=== PATIENT | male | born 1970 | race Caucasian/White ===

== ENCOUNTER 2016-07-09 13:09 | Outpatient (CLI) ==
[2015-07-15 19:05] VITALS: BMI 50.8
--- NOTE | 2016-07-09 13:44 | DI ---
EXAM: Views of the left ankle HISTORY: Pain TECHNIQUE: AP lateral, oblique views of the left ankle were obtained. FINDINGS: No acute fractures are seen. There is anatomic alignment. The joint spaces are normal. IMPRESSION: No acute fracture dislocation seen within the left ankle.
--- NOTE | 2016-07-09 13:52 | DI ---
EXAM: Radiographs, left foot HISTORY: Lateral left mid foot pain. COMPARISON: None available. TECHNIQUE: Three-view. FINDINGS: Bone mineralization is normal. There is no fracture or dislocation. Joint spaces are ma intained although there is mild spurring along the joints of the hindfoot and midfoot. A moderate s ized calcaneal spur is present at the plantar aponeurosis with a small retrocalcaneal spur at the Ac hilles tendon insertion. A 0.2 cm radiopaque object projects over the plantar skin surface at the l evel of the distal first metatarsal. IMPRESSION: 1. No fracture or dislocation. 2. 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 3. Calcaneal spurs. 4. Linear radiopaque object appears to be on the plantar skin at the level of the distal first meta tarsal.
== END 2016-07-09 13:10 | disposition home or self-care (01) ==
LOC: RAD 13:09
PROVIDERS: ATTEND Physician Assistant
DX: M25.579 Pain in unspecified ankle and joints of unspecified foot (principal)

== ENCOUNTER 2016-07-22 10:56 | Outpatient (CLI) ==
[2015-07-15 19:05] VITALS: BMI 50.8
[2016-07-22 11:51] LABS: ALBUMIN 3.7 g/dL (3.4-5.0); ALBUMIN/GLOBULIN RATIO 1.12; ANION GAP 12.4; BILIRUBIN,TOTAL 0.45 mg/dL (0.00-1.20); BUN/CREATININE RATIO 16.49; CALCIUM 9.2 mg/dL (8.2-10.2); CHOL/HDL RATIO 3.4 (4.5-6.4); CREATININE 0.97 mg/dL (0.60-1.10); POTASSIUM 4.4 mmol/L (3.5-5.1)
--- NOTE | 2016-07-22 12:10 | CT ---
EXAM: CT Abdomen without contrast. CT Pelvis without contrast. HISTORY: Right ureteral stone. Right flank pain. COMPARISON: None available. TECHNIQUE: Multiple axial images of the abdomen and pelvis were obtained without intravenous contra st. Images were reformatted in the coronal plane. FINDINGS: Please note that evaluation of the abdominal and pelvic structures is limited due to lack of intravenous contrast. Left lower lobe calcified granuloma noted. There are old left-sided rib fractures. Gallbladder is absent. The liver is enlarged and low density. The pancreas, spleen, and adrenal gl ands demonstrate normal contour. No calcified renal stones or hydronephrosis detected. No ureteral or bladder calculi are seen. Tubular extension of the anterior superior urinary bladder towards th e umbilicus noted. This appears to terminate below the level of the umbilicus. Otherwise, the blad john is unremarkable. The bowel is normal in course and caliber without evidence for obstruction or inflammatory process. Probable tiny normal appendix. A few diverticula are present in the colon. No free fluid or free air identified. Phleboliths are seen in the pelvis. IMPRESSION: 1. No evidence for nephrolithiasis or obstructive uropathy. 2. 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 3. Hepatomegaly with fatty infiltration.
[2016-07-23 06:14] LABS: TESTOSTERONE 219 ng/dL (348-1197)
[2016-07-24 07:24] LABS: FREE TESTOSTERONE 4.9 pg/mL (6.8-21.5)
== END 2016-07-22 10:57 | disposition home or self-care (01) ==
LOC: RAD 10:56
PROVIDERS: ATTEND Urology
DX: E11.65 Type 2 diabetes mellitus with hyperglycemia (principal); R79.89 Other specified abnormal findings of blood chemistry; N23 Unspecified renal colic; N20.1 Calculus of ureter
CPT/HCPCS: 36415; 74176; 80053; 80061; 83036; 84402; 84403; 92567

== ENCOUNTER 2016-09-12 19:50 | Emergency (ER) | payer OTHER ==
[2016-09-12 19:50] VITALS: BMI 50.8
[2016-09-12 20:01] VITALS: BP 171/107; TEMP 98.7
[2016-09-12 20:26] LABS: BASOPHILS # (AUTO) 0.1 K/uL (0-0.2); BASOPHILS % (AUTO) 0.4 % (0.0-3.0); EOSINOPHILS # (AUTO) 0.3 K/ul (0.0-0.7); EOSINOPHILS % (AUTO) 1.5 % (0.0-7.0); HEMATOCRIT 44.4 % (42.0-52.0); HEMOGLOBIN 15.4 g/dl (14.0-18.0); IMMATURE GRANULOCYTE % (AUTO) 0.6 % (0.0-5.0); LYMPHOCYTES # (AUTO) 1.6 K/uL (0.60-3.4); LYMPHOCYTES % (AUTO) 9.2 (10.0-50.0); MEAN CORPUSCULAR HEMOGLOBIN 28.2 pg (27.0-31.0); MEAN CORPUSCULAR HGB CONC 34.7 (31.8-35.4); MEAN CORPUSCULAR VOLUME 81.2 fl (80.0-94.0); MONOCYTES # (AUTO) 1.2 K/uL (0.4-2.0); MONOCYTES % (AUTO) 6.9 (0-10); NEUTROPHILS % (AUTO) 81.4; PLATELET COUNT 312 10^3/uL (140-440); RED BLOOD COUNT 5.47 10^6/ul (4.70-6.10); WHITE BLOOD COUNT 17.18 K/ul (4.2-10.2)
[2016-09-12 20:33] LABS: BILIRUBIN,URINE Negative (NEGATIVE); KETONES,URINE Negative (NEGATIVE); LEUKOCYTE ESTERASE ,URINE Negative (NEGATIVE); NITRITE,URINE Negative (NEGATIVE); PROTEIN,URINE Trace (NEGATIVE); URINE, BLOOD Negative (NEGATIVE)
[2016-09-12 20:36] LABS: ADD URINE MICROSCOPIC YES
[2016-09-12] MEDS: SODIUM CHLORIDE 1,000 ML IV STA (20:37)
[2016-09-12] MEDS: PROTONIX IV IVP STA (20:37)
[2016-09-12 20:59] LABS: ERYTHROCYTE SEDIMENTATION RATE 23 mm/hr (0-15); ESR INTERNAL QC INTERNAL QC VALID
[2016-09-12 21:02] LABS: ALANINE AMINOTRANSFERASE 28 U/L (12-78); ALBUMIN 3.5 g/dL (3.4-5.0); ALBUMIN/GLOBULIN RATIO 0.92; ALKALINE PHOSPHATASE 124 U/L (50-136); AMYLASE 60 U/L (25-115); ANION GAP 14.4; ASPARTATE AMINO TRANSFERASE 18 U/L (15-37); BILIRUBIN,TOTAL 0.56 mg/dL (0.00-1.20); BLOOD UREA NITROGEN 13 mg/dL (7-18); BUN/CREATININE RATIO 15.85; CALCIUM 9.1 mg/dL (8.2-10.2); CARBON DIOXIDE 27 mmol/L (21-32); CHLORIDE 99 mmol/L (98-107); CREATINE KINASE 264 U/L; CREATININE 0.82 mg/dL (0.60-1.10); GLUCOSE 146 mg/dL (70-100); LIPASE 162 U/L (8-78); POTASSIUM 4.4 mmol/L (3.5-5.1); SODIUM 136 mmol/L (136-145); TOTAL PROTEIN 7.3 g/dL (6.4-8.2)
[2016-09-12 21:04] LABS: CREATINE KINASE MB 4.3 ng/ml (0.0-3.6)
[2016-09-12] MEDS: DILAUDID 1 MG/ML SYRINGE IVP STA (21:34)
[2016-09-12] MEDS: ZOFRAN 4 MG/2 ML IVP STA (21:36)
--- NOTE | 2016-09-12 22:02 | CT ---
EXAM: CT chest without contrast HISTORY: Chest wall pain TECHNIQUE: Multi-slice transaxial helical. Coronal and sagital reformations were performed. COMPARISON: CT abdomen from same day. 08/13/2015. FINDINGS: The heart is on the upper limits of normal in size. A small amount of superior pericardial recess f luid is seen. There is no evidence of mediastinal adenopathy. Visualized thyroid appears unremarkable. There is no axillary adenopathy. Please see same day CT a bdominal report for description of abdominal findings. Healing left-sided sixth and seventh rib frac tures are present. No evidence of acute appearing rib fractures are seen. There is bridging anteri or osteophytosis of the thoracic spine. The previous left-sided pleural effusion is significantly improved with a trace amount of left-sided pleural effusion remaining. There is dependent atelectasis/subsegmental atelectasis in the left genoveva ng base. Minimal pleural thickening adjacent to the left-sided rib fractures is present. Dependent the right lung base atelectasis is present. Bilateral small calcified granulomas are present. IMPRESSION: 1. Healing left-sided sixth and seventh rib fractures with adjacent minimal pleural thickening. No a cute appearing rib fractures. 2. Improved left-sided pleural effusion with trace remaining. 3. Bibasilar dependent/subsegmental atelectasis. 4. Other incidental and age-related changes as above.
--- NOTE | 2016-09-12 22:07 | CT ---
EXAM: CT scan abdomen pelvis with without contrast HISTORY: Epigastric pain COMPARISON: CT scan abdomen pelvis 07/22/2016 FINDINGS: Contiguous axial images obtained from lung bases to the symphysis pubis both before after uneventful administration of intravenous contrast utilizing 5-mm collimation. Sagittal and coronal reconstructions were imaged and reviewed.. There is a small hiatal hernia. There has been prior ch olecystectomy. There is fatty infiltration noted throughout the liver.. Pancreatic stranding is se en relation to the pancreatic head and uncinate process compatible with pancreatitis. The kidneys ex crete contrast in a normal fashion bilaterally. The abdominal aorta is normal in course and caliber . No evidence of free fluid.. There is likely a urethral diverticulum. Bone windows reveals no evide nce of lytic or blastic lesions . Degenerative changes are seen within the lower thoracic and lumba r spine. IMPRESSION: Fatty infiltration is of throughout the liver. Prior cholecystectomy. There is mild pancreatitis involving pancreatic head and uncinate process. Prominent small bowel which may be related to ileus.
--- NOTE | 2016-09-12 22:24 | ED.PDOC ---
General ED Provider: Dr. JACE GAONA-ER Chief Complaint: Abdominal Pain Stated Complaint: im hurting-- Time Seen by Physician: 19:55 Information Source: Patient Exam Limitations: No limitations Primary Care Provider: JAY OSBORN Nursing and Triage Documentation Reviewed and Agree: Yes GI Complaint Exam - Abdominal Pain Complaint/Exam Onset: Gradual Duration: several days Symptoms Are: Still present Timing: Constant Initial Severity: Severe Current Severity: Moderate Location of Pain: LUQ Character: Reports: Dull, Aching Alleviating: Reports: None Associated Signs and Symptoms: Reports: Decreased appetite. Denies: Diaphoresis , Fever, Cough, Chest pain, Dizziness, Back pain, Constipation, Blood in stool, Dysuria, Urinary frequency, Decreased urine output, Discharge, Nausea, Vomiting , Diarrhea, Decreased activity Surgical Obstruction Risk Factors: Reports: Colicky abdominal pain, Prior abdominal surgery Related Surgical History: Reports: Cholecystectomy Abdominal Findings: Present: None Differential Diagnoses: Constipation, Pancreatitis Quality Indicator For Non-Traumatic Chest Pain/Syncope: EKG Performed Review of Systems - Review Of Systems Constitutional: Reports: No symptoms Eyes: Reports: No symptoms Ears, Nose, Mouth, Throat: Reports: No symptoms Respiratory: Reports: No symptoms Cardiac: Reports: No symptoms GI: Reports: Abdominal pain, Nausea : Reports: No symptoms Musculoskeletal: Reports: No symptoms Skin: Reports: No symptoms Neurological: Reports: No symptoms Endocrine: Reports: No symptoms Hematologic/Lymphatic: Reports: No symptoms All Other Systems: Reviewed and Negative Past Medical History - Past Medical History Endocrine: Reports: DM 2 Cardiovascular: Reports: Hypertension Respiratory: Reports: Pneumonia Hematological: Reports: None Gastrointestinal: Reports: None Genitourinary: Reports: None Neuro/Psych: Reports: None Musculoskeletal: Reports: Back Pain Cancer: Reports: None - Surgical History General Surgical History: Reports: Unknown - Family History Family History: Reports: Unknown - Social History Smoking Status: Never smoker Hx Substance Use: No Alcohol Screening: None Lives: With family Physical Exam - Physical Exam Appearance: Well-appearing, No pain distress, Well-nourished Pain Distress: Mild Eyes: KERI, EOMI, Conjunctiva clear ENT: Ears normal, Nose normal, Oropharynx normal Neck: Supple Respiratory: Airway patent, Breath sounds clear, Breath sounds equal, Respirations nonlabored Cardiovascular: RRR, Pulses normal, No rub, No murmur GI/: Soft, Nontender, No masses, Bowel sounds normal, No Organomegaly Musculoskeletal: Normal strength, ROM intact, No edema, No calf tenderness Skin: Warm, Dry, Normal color Neurological: Sensation intact, Motor intact, Reflexes intact, Cranial nerves intact, Alert, Oriented Psychiatric: Affect appropriate, Mood appropriate Interpretation - Radiology Interpretation Radiology Interpretation By: Radiologist Radiology Results: Positive Exam Interpreted: CT Scan Radiology Interpretation By: ED Physician Re-Evaluation - Re-Evaluation Time of Re-Evaluation: 22:23 Status: Improved Vital Signs Stable: Yes Pain Level: 1 Appearance: NAD Lungs: Clear Skin: Warm and Dry Neuro: Alert and Oriented X3 CV: RRR Critical Care Note - Critical Care Note Total Time (mins): 0 Course - Course Hematology/Chemistry: 09/12/16 20:20 09/12/16 20:20 Orders, Labs, Meds: Lab Review 09/12/16 09/12/16 20:20 20:29 WBC 17.18 H RBC 5.47 Hgb 15.4 Hct 44.4 MCV 81.2 MCH 28.2 MCHC 34.7 RDW Coeff of Tru 12.9 Plt Count 312 Immature Gran % (Auto) 0.6 Neut % (Auto) 81.4 Lymph % (Auto) 9.2 L [place] % (Auto) 6.9 Eos % (Auto) 1.5 Baso % (Auto) 0.4 Immature Gran # (Auto) 0.1 Neut # 14.0 H Lymph # 1.6 [place] # 1.2 Eos # 0.3 Baso # 0.1 ESR 23 H D-Dimer 0.70 Sodium 136 Potassium 4.4 Chloride 99 Carbon Dioxide 27 Anion Gap 14.4 BUN 13 Creatinine 0.82 Estimated GFR (MDRD) 100.00 BUN/Creatinine Ratio 15.85 Glucose 146 H Calcium 9.1 Total Bilirubin 0.56 AST 18 ALT 28 Alkaline Phosphatase 124 Total Creatine Kinase 264 CK-MB (CK-2) 4.3 H CK-MB (CK-2) % 1.37313 Troponin I < 0.0100 Total Protein 7.3 Albumin 3.5 Globulin 3.8 Albumin/Globulin Ratio 0.92 Amylase 60 Lipase 162 H Urine Color Yellow Urine Clarity Clear Urine pH 8.0 Ur Specific [place] 1.020 Urine Protein Trace Urine Glucose (UA) Trace Urine Ketones Negative Urine Blood Negative Urine Nitrite Negative Urine Bilirubin Negative Urine Urobilinogen 1.0 Ur Leukocyte Esterase Negative Ur Squamous Epith Cells 2-5 Amorphous Sediment 1+ Orders Category Date Time Status EKG-(ED ONLY) Stat CARDIO 09/12/16 20:08 Completed NPO REMINDER: IMAGING ONCE CARE 09/12/16 20:10 Completed IV [ED IV/MEDIPORT/POWERPORT] .ONCE EMERGENCY 09/12/16 20:09 Active AMYLASE Stat LAB 09/12/16 20:20 Completed CBC W/ AUTO DIFF Stat LAB 09/12/16 20:20 Completed COMPREHENSIVE METABOLIC PANEL Stat LAB 09/12/16 20:20 Completed CREATINE KINASE Stat LAB 09/12/16 20:20 Completed D-DIMER Stat LAB 09/12/16 20:20 Completed ESR Stat LAB 09/12/16 20:20 Completed LIPASE Stat LAB 09/12/16 20:20 Completed TROPONIN I Stat LAB 09/12/16 20:20 Completed URINALYSIS C & S IF INDICATED Stat LAB 09/12/16 20:29 Completed 0.9 % Sodium Chloride [Saline Flush] MEDS 09/12/16 20:09 Ordered 1 syr IVF PRN PRN Hydromorphone HCl [Dilaudid 1 mg/ml Syringe] MEDS 09/12/16 21:10 Discontinued 1 mg IVP ONCE STA Ondansetron HCl/Pf [Zofran 4 mg/2 ml] MEDS 09/12/16 21:10 Discontinued 4 mg IVP ONCE STA Pantoprazole Sodium [Protonix IV] MEDS 09/12/16 20:09 Discontinued 40 mg IVP ONCE STA Sodium Chloride 0.9% [Sodium Chloride] 1,000 ml MEDS 09/12/16 20:09 Active IV 100 mls/hr CT ABDOMEN/PELVIS W/WO CONTRAS Stat RADS 09/12/16 20:[address] CHEST W/O CONTRAST Stat RADS 09/12/16 20:10 Completed Medications Generic Name Dose Route Start Last Admin Trade Name Freq PRN Reason Stop Dose Admin Sodium Chloride 1,000 mls @ 100 mls/hr 09/12/16 20:09 09/12/16 20:37 Sodium Chloride IV 09/13/16 06:08 100 mls/hr .Q10H STA Administration Sodium Chloride 1 syr 09/12/16 20:09 Saline Flush IVF PRN PRN To flush IV Discontinued Medications Generic Name Dose Route Start Last Admin Trade Name Freq PRN Reason Stop Dose Admin Hydromorphone HCl 1 mg 09/12/16 21:10 09/12/16 21:34 Dilaudid 1 Mg/Ml Syringe IVP 09/12/16 21:11 1 mg ONCE STA Administration Ondansetron HCl 4 mg 09/12/16 21:10 09/12/16 21:36 Zofran 4 Mg/2 Ml IVP 09/12/16 21:11 4 mg ONCE STA Administration Pantoprazole Sodium 40 mg 09/12/16 20:09 09/12/16 20:37 Protonix Iv IVP 09/12/16 20:10 40 mg ONCE STA Administration i wanted to admit or transfer this patient but he declines--his was present and notes this) Vital Signs: Temp Pulse Resp BP Pulse Ox 09/12/16 19:51 98.7 F 112 H 20 171/107 H 95 Departure - Departure Time of Disposition: 22:23 Disposition: HOME SELF-CARE Discharge Problem: Pancreatitis Qualifiers: Chronicity: acute Pancreatitis type: unspecified pancreatitis type Acute pancreatitis complication: unspecified Qualifier Code: (K85.90) Acute pancreatitis without necrosis or infection, unspecified Instructions: Pancreatitis (ED) Condition: Good Pt referred to PMD for follow-up: Yes Additional Instructions: keep hydrated---percocet 10mg q 4hrs prn #15---no fatty foods---slowly advance diet--f/u with dr osborn thursday--hold metformin for 48hrs Allergies/Adverse Reactions: Allergies No Known Allergies Allergy (Verified 09/12/16 20:01) Home Medications: Ambulatory Orders Atorvastatin Calcium [Lipitor] 20 mg PO BEDTIME 09/02/13 Gabapentin [Neurontin] 300 mg PO DAILY 09/02/13 Insulin Glargine,Hum.rec.anlog [Lantus] 100 unit SUBCUT BEDTIME 09/02/13 Insulin Glulisine [Apidra] 25 units SQ QDAC PRN 09/02/13 Lamotrigine [Lamictal Xr] 300 mg PO DAILY 09/02/13 Losartan Potassium 100 mg PO BEDTIME 09/02/13 Omeprazole [Prilosec] 40 mg PO BEDTIME 09/02/13 Sertraline HCl 100 mg PO BEDTIME 09/02/13 Sitagliptin Phos/Metformin HCl [Janumet 50-1,000 mg Tablet] 1 tab PO BID Hydrocodone Bit/Acetaminophen [[place] 5-325] 1 tab PO Q6HR PRN 07/15/15 Levomilnacipran Hydrochloride [Fetzima] 40 mg PO DAILY 05/19/16 Testosterone [Androgel] 1.25 gm TD DAILY 05/19/16 Budesonide/Formoterol Fumarate [Symbicort 160-4.5 Mcg Inhaler] 2 puff IH BID PRN 09/12/16 Disposition Discussed With: Patient, Family
== END 2016-09-12 22:43 | disposition home or self-care (01) ==
LOC: ED 19:50
DX: K85.90 Acute pancreatitis without necrosis or infection, unspecified (principal); E11.9 Type 2 diabetes mellitus without complications; I10 Essential (primary) hypertension; Z79.899 Other long term (current) drug therapy
CPT/HCPCS: 36415; 80053; 81001; 82150; 82550; 82553; 83690; 84484; 85025; 85379; 85651; 93005; 93010; 96361; 96374; 96375; 99283

== ENCOUNTER 2016-11-03 11:02 | Outpatient (CLI) ==
[2016-11-03 11:20] LABS: BASOPHILS % (AUTO) 0.4 % (0.0-3.0); EOSINOPHILS # (AUTO) 0.3 K/ul (0.0-0.7); EOSINOPHILS % (AUTO) 2.5 % (0.0-7.0); HEMOGLOBIN 16.3 g/dl (14.0-18.0); IMMATURE GRANULOCYTE % (AUTO) 0.6 % (0.0-5.0); LYMPHOCYTES % (AUTO) 19.5 (10.0-50.0); MEAN CORPUSCULAR HEMOGLOBIN 27.7 pg (27.0-31.0); MEAN CORPUSCULAR VOLUME 81.5 fl (80.0-94.0); MONOCYTES # (AUTO) 0.8 K/uL (0.4-2.0); MONOCYTES % (AUTO) 8.1 (0-10); NEUTROPHILS # (AUTO) 7.1 K/ul (2.0-6.9); NEUTROPHILS % (AUTO) 68.9; PLATELET COUNT 240 10^3/uL (140-440); RED BLOOD COUNT 5.89 10^6/ul (4.70-6.10); WHITE BLOOD COUNT 10.27 K/ul (4.2-10.2)
[2016-11-03 11:51] LABS: ALBUMIN 3.6 g/dL (3.4-5.0); ALBUMIN/GLOBULIN RATIO 1.06; ANION GAP 13.2; BILIRUBIN,TOTAL 0.51 mg/dL (0.00-1.20); BUN/CREATININE RATIO 18.68; CALCIUM 8.8 mg/dL (8.2-10.2); CHOL/HDL RATIO 3.2 (4.5-6.4); CREATININE 0.91 mg/dL (0.60-1.10); POTASSIUM 4.2 mmol/L (3.5-5.1)
[2016-11-04 06:15] LABS: TESTOSTERONE 968 ng/dL (348-1197)
[2016-11-05 16:04] LABS: FREE TESTOSTERONE 17.7 pg/mL (6.8-21.5)
== END 2016-11-03 11:03 | disposition home or self-care (01) ==
LOC: LAB 11:02
PROVIDERS: ATTEND Internal Medicine
DX: E11.65 Type 2 diabetes mellitus with hyperglycemia (principal); R79.89 Other specified abnormal findings of blood chemistry; I10 Essential (primary) hypertension; E78.5 Hyperlipidemia, unspecified; E66.01 Morbid (severe) obesity due to excess calories
CPT/HCPCS: 36415; 80053; 80061; 83036; 84402; 84403; 85025

== ENCOUNTER 2017-06-17 10:23 | Outpatient (CLI) | payer OTHER ==
--- NOTE | 2017-06-17 11:46 | US ---
Exam: [place]-scale and color Doppler ultrasonographic evaluation of the testicles and scrotum. Comparison: None available. Reason for exam: Pain. FINDINGS: The right testicle measures approximately 3.33 x 2.22 x 2.52 cm with a heterogeneous appea ring echotexture and normal vascular flow. There is a 1.16 x 1.20 x 2.26 cm poorly marginated hypere choic lesion in the right testicular parenchyma. The right epididymis appears grossly unremarkable. The right scrotal wall is thickened and measures 1.08 cm. The left testicle measures 3.57 x 2.55 x 2.70 cm with heterogeneous appearing echotexture and normal vascular flow. The left epididymis has been removed. Through the left scrotal wall is thickened measuring 1.28 cm. Impression: 1. Poorly marginated hyperechoic lesion in the right testicular parenchyma. Imaging findings may re present an intratesticular lesion versus extremely heterogeneous right parenchymal echotexture. Wong mmend urologic consultation and further evaluation. 2. Moderate to marked parenchymal heterogenicity is seen in both testicles. The differential diagno sis for heterogeneous testicular parenchyma is wide. Recommend urologic consultation. 3. Thickening of the scrotal lemon measuring up to 1.28 cm. Report faxed at 1142 hours on 06/17/2017.
== END 2017-06-17 10:24 | disposition home or self-care (01) ==
LOC: RAD 10:23
PROVIDERS: ATTEND Urology
DX: N50.819 Testicular pain, unspecified (principal)

== ENCOUNTER 2017-08-07 14:09 | Outpatient (CLI) ==
--- NOTE | 2017-08-07 14:45 | DI ---
EXAM: Chest two views HISTORY: Pleurodynia COMPARISON: 11/26/2015 TECHNIQUE: Two views of the chest were performed FINDINGS: The lungs are clear. There is no pleural effusion or pneumothorax. The heart is normal i n size. The mediastinal contour is normal. There are no acute abnormalities of the bones. Old left rib fractures. IMPRESSION: No acute cardiopulmonary process.
--- NOTE | 2017-08-07 14:49 | DI ---
EXAM: Unilateral right ribs HISTORY: Pleurodynia COMPARISON: None FINDINGS: No right rib fracture identified. No visible pneumothorax. Granulomatous calcification not ed. IMPERSSION: No right rib fracture identified.
[2017-08-08 02:35] VITALS: BMI 51.0
== END 2017-08-07 14:10 | disposition home or self-care (01) ==
LOC: RAD 14:09
PROVIDERS: ATTEND Internal Medicine
DX: R07.81 Pleurodynia (principal)

== ENCOUNTER 2017-08-07 21:54 | Inpatient (IN) ==
[2017-08-07] MEDS ORDERED: AZACTAM IM STA (23:11)
[2017-08-07] MEDS ORDERED: VANCOMYCIN 1,000 MG in SODIUM CHLORIDE 200 ML IV STA (23:11)
[2017-08-07] MEDS ORDERED: VANCOMYCIN ONE (23:46)
--- NOTE | 2017-08-08 00:08 | CT ---
Exam: CT of the abdomen and pelvis without and with contrast History: Status post bariatric gastric surgery with abdominal wall abscess Knee: [address] of the abdomen and pelvis pre and post intravascular contrast FINDINGS: Technically inhibited study secondary to body habitus limitations. The patient's flanks a re touching the gantry and a significant portion of the abdominal wall is beyond the field of view. Small right pleural fluid and adjacent atelectasis. Postoperative changes of the stomach without shanna rounding inflammation. The liver, pancreas, spleen and adrenal glands appear normal. Kidneys and pro ximal collecting system are unremarkable. The appendix is normal. Bowel loops demonstrate normal gilbert cris. No inflamatory change seen in the mesentery or retroperitoneum. Vascular structures appear gertrude l. Coarse stranding of the subcutaneous fat of the upper abdomen midline just below the xyphoid. No organizing inflammatory mass or collection is seen. Pelvic genitourinary structures appear normal. Pelvic bowel loops are unremarkable. No inflammatory c hange in the pelvic fat. No acute abnormality of the abdominal or pelvic skeleton. Impression: 1. Technically inhibited study excluding a significant portion of the abdominal wall secondary to caitlyn dy habitus limitations. 2. Stranding of the subcutaneous fat of the anterior abdominal wall midline just below the xyphoid. No organizing inflammatory collection is seen. This portion of the abdominal wall is probably adequ ately seen. The left anterior and lateral abdominal wall is mostly excluded. 3. No inflammatory process, bowel or urinary obstruction seen within the abdomen or pelvis. 4. Small right pleural fluid is nonspecific
--- NOTE | 2017-08-08 00:25 | ED.PDOC ---
General ED Provider: Dr. GARRETT GARCIA Chief Complaint: Non-specific Complaint Stated Complaint: Patient Had G bypass on 07-27-17 in [facility],. he noticed some redness and drainage from the wound, it is gradually getting more and it is yellow colored, thick, no fever or chills. Time Seen by Physician: 00:22 Mode of Arrival: Walk-In Information Source: Patient, Family Primary Care Provider: MARIELA OSBORN Nursing and Triage Documentation Reviewed and Agree: Yes Reviewed sepsis parameters & appropriate labs ordered?: No System Inflammatory Response Syndrome: Not Applicable Sepsis Protocol: For patient's 13 years and over: Temp is 96.8 and below OR 101 and greater Pulse >90 BPM Resp >20/minute Acutely Altered Mental Status Are patient's symptoms suggestive of a new infection, such as: -Pneumonia -Skin, Soft Tissue -Endocarditis -UTI -Bone, Joint Infection -Implantable Device -Acute Abdominal Infection -Wound Infection -Meningitis -Blood Stream Catheter Infection -Unknown Skin Complaint Exam - Skin/Soft Tissue Complaint/Exam Symptoms Are: Still present Timing: Constant Initial Severity: Moderate Current Severity: Moderate Character: Reports: Redness, Swelling, Raised Aggravating: Reports: Touch Alleviating: Reports: None Associated Signs and Symptoms: Reports: Drainage, Tenderness, Red streaks. Denies: Fever, Chills, Itching, Bruising, Joint swelling Related History: Reports: Recent trauma (surgery) Related Surgical History: Reports: None Recent Exposure to Others w/Similar Symptoms: No Skin Findings: Present: Erythema, Induration. Absent: Fluctuant mass Differential Diagnoses: Abscess, Cellulitis Review of Systems - Review Of Systems Constitutional: Reports: No symptoms Eyes: Reports: No symptoms Ears, Nose, Mouth, Throat: Reports: No symptoms Respiratory: Reports: No symptoms Cardiac: Reports: No symptoms GI: Reports: No symptoms : Reports: No symptoms Musculoskeletal: Reports: No symptoms Skin: Reports: No symptoms Neurological: Reports: No symptoms Endocrine: Reports: No symptoms Hematologic/Lymphatic: Reports: No symptoms All Other Systems: Reviewed and Negative Past Medical History - Past Medical History Previously Healthy: Yes Endocrine: Reports: DM 2 Cardiovascular: Reports: Hypertension Respiratory: Reports: Pneumonia Hematological: Reports: None Gastrointestinal: Reports: None Genitourinary: Reports: None Neuro/Psych: Reports: None Musculoskeletal: Reports: Back Pain Cancer: Reports: None - Surgical History General Surgical History: Reports: Unknown - Family History Family History: Reports: Unknown - Social History Smoking Status: Never smoker Hx Substance Use: No Alcohol Screening: None - Immunizations Tetanus Shot up to Date: Yes Physical Exam - Physical Exam Appearance: Ill-appearing, Obese Ill-appearing: Mild Eyes: EOMI ENT: Ears normal, Nose normal, Oropharynx normal Respiratory: Airway patent, Breath sounds clear, Breath sounds equal, Respirations nonlabored Cardiovascular: RRR, Pulses normal, No rub, No murmur GI/: Soft, Nontender, No masses, Bowel sounds normal, No Organomegaly Musculoskeletal: Normal strength, ROM intact, No edema, No calf tenderness Skin: Warm, Dry, Normal color Neurological: Sensation intact, Motor intact, Reflexes intact, Cranial nerves intact, Alert, Oriented Psychiatric: Affect appropriate, Mood appropriate Interpretation - Radiology Interpretation Radiology Interpretation By: Radiologist Radiology Results: Negative Critical Care Note - Critical Care Note Total Time (mins): 20 Course - Course Hematology/Chemistry: 08/07/17 22:44 08/07/17 22:44 Orders, Labs, Meds: Lab Review 08/07/17 08/07/17 08/07/17 22:44 22:44 22:44 WBC 20.64 H RBC 5.54 Hgb 15.3 Hct 45.1 MCV 81.4 MCH 27.6 MCHC 33.9 RDW Coeff of Tru 14.3 Plt Count 307 Immature Gran % (Auto) 0.5 Neut % (Auto) 76.7 Lymph % (Auto) 13.4 [place] % (Auto) 7.2 Eos % (Auto) 1.7 Baso % (Auto) 0.5 Immature Gran # (Auto) 0.1 Neut # 15.9 H Lymph # 2.8 [place] # 1.5 Eos # 0.4 Baso # 0.1 Sodium 138 Potassium 4.1 Chloride 100 Carbon Dioxide 25 Anion Gap 17.1 BUN 13 Creatinine 0.89 Estimated GFR (MDRD) 91.00 BUN/Creatinine Ratio 14.60 Glucose 141 H Lactic Acid 9.4 Calcium 9.3 Total Bilirubin 0.4 AST 15 ALT 19 Alkaline Phosphatase 145 H Total Protein 7.1 Albumin 3.0 L Globulin 4.1 Albumin/Globulin Ratio 0.73 Procalcitonin 08/07/17 22:44 WBC RBC Hgb Hct MCV MCH MCHC RDW Coeff of Tru Plt Count Immature Gran % (Auto) Neut % (Auto) Lymph % (Auto) [place] % (Auto) Eos % (Auto) Baso % (Auto) Immature Gran # (Auto) Neut # Lymph # [place] # Eos # Baso # Sodium Potassium Chloride Carbon Dioxide Anion Gap BUN Creatinine Estimated GFR (MDRD) BUN/Creatinine Ratio Glucose Lactic Acid Calcium Total Bilirubin AST ALT Alkaline Phosphatase Total Protein Albumin Globulin Albumin/Globulin Ratio Procalcitonin < 0.05 Orders Category Date Time Status NPO REMINDER: IMAGING ONCE CARE 08/07/17 22:26 Completed ED WOUND CARE .ONCE EMERGENCY 08/07/17 22:25 Active BLOOD CULTURE Stat LAB 08/07/17 22:44 Received CBC W/ AUTO DIFF Stat LAB 08/07/17 22:44 Completed COMPREHENSIVE METABOLIC PANEL Stat LAB 08/07/17 22:44 Completed LACTIC ACID Stat LAB 08/07/17 22:44 Completed PROCALCITONIN Stat LAB 08/07/17 22:44 Completed Aztreonam [Azactam] MEDS 08/07/17 23:11 Discontinued 1 gm IM ONCE STA Vancomycin HCl [Vancomycin] MEDS 08/07/17 23:46 Discontinued 1,000 mg .ROUTE .STK-MED ONE Vancomycin HCl [Vancomycin] 1,000 mg MEDS 08/07/17 23:11 Active 0.9 % Sodium Chloride [Sodium Chloride] [address] ABDOMEN/PELVIS W/WO CONTRAS Stat RADS 08/07/17 22:25 Completed Medications Generic Name Dose Route Start Last Admin Trade Name Freq PRN Reason Stop Dose Admin Vancomycin HCl 1,000 mg/ 200 mls @ 100 mls/hr 08/07/17 23:11 08/07/17 23:58 Sodium Chloride IV 08/08/17 01:10 100 mls/hr ONCE STA Administration Discontinued Medications Generic Name Dose Route Start Last Admin Trade Name Freq PRN Reason Stop Dose Admin Aztreonam 1 gm 08/07/17 23:11 Azactam IM 08/07/17 23:12 ONCE STA Vital Signs: Temp Pulse Resp BP Pulse Ox 08/07/17 21:54 98.1 F 104 H 18 131/83 94 L Departure - Departure Time of Disposition: 00:25 Disposition: ADMITTED INPATIENT Discharge Problem: Cellulitis, abdominal wall Instructions: Cellulitis (ED) Condition: Stable Pt referred to PMD for follow-up: Yes IPMP verified?: No Allergies/Adverse Reactions: Allergies No Known Allergies Allergy (Unverified 10/03/16 13:54) Home Medications: Ambulatory Orders Atorvastatin Calcium [Lipitor] 20 mg PO BEDTIME 09/02/13 Gabapentin [Neurontin] 300 mg PO DAILY 09/02/13 Insulin Glargine,Hum.rec.anlog [Lantus] 100 unit SUBCUT BEDTIME 09/02/13 Insulin Glulisine [Apidra] 25 units SQ QDAC PRN 09/02/13 Lamotrigine [Lamictal Xr] 300 mg PO DAILY 09/02/13 Losartan Potassium 100 mg PO BEDTIME 09/02/13 Omeprazole [Prilosec] 40 mg PO BEDTIME 09/02/13 Sertraline HCl 100 mg PO BEDTIME 09/02/13 Sitagliptin Phos/Metformin HCl [Janumet 50-1,000 mg Tablet] 1 tab PO BID Levomilnacipran HCl [Fetzima] 40 mg PO DAILY 05/19/16 Testosterone [Androgel] 1.25 gm TD DAILY 05/19/16 Budesonide/Formoterol Fumarate [Symbicort 160-4.5 Mcg Inhaler] 2 puff IH BID PRN 09/12/16 Oxycodone-Acetaminophen 10-325 [Percocet 10-325] 1 tab PO Q6H PRN 08/07/17 Disposition Discussed With: Patient, Family
[2017-08-08] MEDS ORDERED: TYLENOL PO PRN (00:28)
[2017-08-08] MEDS ORDERED: VANCOMYCIN 1,000 MG in SODIUM CHLORIDE 200 ML IV SCH (00:30)
[2017-08-08] MEDS ORDERED: AZACTAM 1 GM in SODIUM CHLORIDE 50 ML IV SCH (00:30)
[2017-08-08] MEDS ORDERED: ATIVAN PO STA (01:25)
[2017-08-08 02:35] VITALS: BMI 51.0
[2017-08-08] MEDS ORDERED: AZACTAM ONE (03:11)
[2017-08-08] MEDS: SODIUM CHLORIDE 1,000 ML IV SCH (03:24)
[2017-08-08] MEDS: NEURONTIN PO SCH (08:35)
[2017-08-08] MEDS ORDERED: NEURONTIN PO SCH (09:00)
[2017-08-08] MEDS: LEVOMILNACIPRAN HCL 40 MG PO SCH (11:04)
[2017-08-08] MEDS: LAMOTRIGINE 300 MG PO SCH (11:04)
[2017-08-08] MEDS: INSULIN GLULISINE SQ SCH ×3 (11:04→20:08)
[2017-08-08] MEDS: TESTOSTERONE 1.25 GM TD SCH (11:05)
[2017-08-08] MEDS: HUMULIN R SUBCUT PRN ×2 (11:21→20:07)
[2017-08-08] MEDS: VANCOMYCIN 1.5 GM in SODIUM CHLORIDE 500 ML IV SCH ×2 (13:12→21:03)
[2017-08-08] MEDS: AZACTAM 1 GM in SODIUM CHLORIDE 50 ML IV SCH (20:05)
[2017-08-08] MEDS: PRILOSEC PO SCH (20:07)
[2017-08-08] MEDS: LANTUS SUBCUT SCH (20:07)
[2017-08-08] MEDS: COZAAR PO SCH (20:08)
[2017-08-08] MEDS: PERCOCET 10-325 PO PRN (20:08)
[2017-08-08] MEDS: ZOLOFT PO SCH (20:08)
[2017-08-08] MEDS ORDERED: NON-FORMULARY MEDICATION (Sertraline Hcl [Sertraline Hcl] 100 MG) PO SCH (21:00)
[2017-08-08] MEDS ORDERED: LIPITOR PO SCH (21:00)
[2017-08-09] MEDS: SODIUM CHLORIDE 1,000 ML IV SCH (01:07)
[2017-08-09] MEDS: PERCOCET 10-325 PO PRN (02:08)
[2017-08-09] MEDS: VANCOMYCIN 1.5 GM in SODIUM CHLORIDE 500 ML IV SCH ×3 (04:16→22:20)
[2017-08-09] MEDS ORDERED: ATIVAN IVP PRN (08:05)
[2017-08-09] MEDS: NEURONTIN PO SCH (08:27)
[2017-08-09] MEDS: AZACTAM 1 GM in SODIUM CHLORIDE 50 ML IV SCH ×2 (08:27→21:16)
[2017-08-09] MEDS: INSULIN GLULISINE SQ SCH ×4 (09:00→21:17)
[2017-08-09] MEDS: LEVOMILNACIPRAN HCL 40 MG PO SCH (09:20)
[2017-08-09] MEDS: LAMOTRIGINE 300 MG PO SCH (09:20)
[2017-08-09] MEDS ORDERED: CITRATE OF MAGNESIA PO STA (10:04)
[2017-08-09] MEDS: TESTOSTERONE 1.25 GM TD SCH (10:14)
[2017-08-09] MEDS: HUMULIN R SUBCUT PRN ×3 (10:50→21:17)
[2017-08-09] MEDS ORDERED: LIPITOR PO SCH (21:00)
[2017-08-09] MEDS ORDERED: TESTOSTERONE 1.25 GM TD SCH (21:00)
[2017-08-09] MEDS: COZAAR PO SCH (21:17)
[2017-08-09] MEDS: LANTUS SUBCUT SCH (21:17)
[2017-08-09] MEDS: PRILOSEC PO SCH (21:18)
[2017-08-09] MEDS: ZOLOFT PO SCH (21:19)
[2017-08-10] MEDS: VANCOMYCIN 1.5 GM in SODIUM CHLORIDE 500 ML IV SCH ×2 (05:05→13:13)
[2017-08-10] MEDS: SODIUM CHLORIDE 1,000 ML IV SCH ×2 (05:05)
[2017-08-10] MEDS: INSULIN GLULISINE SQ SCH (09:06)
[2017-08-10] MEDS: NEURONTIN PO SCH (09:06)
[2017-08-10] MEDS: AZACTAM 1 GM in SODIUM CHLORIDE 50 ML IV SCH (09:06)
[2017-08-10] MEDS: LAMOTRIGINE 300 MG PO SCH (09:14)
[2017-08-10] MEDS: LEVOMILNACIPRAN HCL 40 MG PO SCH (09:14)
--- NOTE | 2017-08-10 13:08 | US ---
EXAM: Limited abdominal ultrasound. History: Anterior abdominal tenderness. Technique: Multiple sonographic images through the abdomen were obtained. Color duplex Doppler was used to interrogate vascular flow. Findings: Within the subcutaneous soft tissues of the anterior abdominal wall in the region of inter est there is skin thickening and edema with 0.4 cm skin defect that likely correlates with the draina ge site. There are no drainable fluid collections identified. Impression: Cellulitis but no abscess identified.
--- NOTE | 2017-08-10 14:03 | PN ---
DATE OF SERVICE: 08/08/17 SUBJECTIVE: The patient admitted with anterior abdominal wall abscess, cellulitis. The patient had gastric bypass surgery July 27. The patient is getting IV Vancomycin and Azactam. Feeling better. Sugars been under control. REVIEW OF SYSTEMS: CONSTITUTIONAL: No fever, no chills. HEENT: Normal. ENDOCRINE: No weight gain, no weight loss. CVS: No angina symptoms. No CHF symptoms. No palpitations. No atypical chest pain for CAD. No shortness of breath. No PND, no orthopnea. RESPIRATORY: No cough, no hemoptysis. GI: No nausea, no vomiting. No abdominal pain. : No hematuria. No polyuria. MUSCULOSKELETAL: No joint swelling. PSYCHIATRIC: Not anxious. No depression. No suicidal thoughts. No homicidal thoughts. SKIN: Intact. No rash. PHYSICAL EXAMINATION: V/S: Blood pressure 156/85, respiratory rate 20, heart rate 94, temperature 98.2 and saturation 93%. HEENT: Normocephalic, atraumatic. Mucosa dry. Pallor positive. NECK: Supple. No JVD, no carotid bruit. No lymphadenopathy. LUNGS: Clear to auscultation. No rales or rhonchi. HEART: S1, S2 normal. No S3. No murmur, gallop or regurgitation. ABDOMEN: Anterior abdominal wall multiple laparoscopic surgical sights are seen on the one in the epigastric area; red no drainage is seen today and tender to touch. Fluctuant mass is seen. Bowel sounds active. No rigidity. No rebound or guarding. No CVA tenderness. EXTREMITIES: No pedal edema. No clubbing or cyanosis MUSCULOSKELETAL: No joint swelling. NEUROLOGIC: Awake, alert, oriented times three. No focal deficit. LYMPHATIC: No lymph nodes palpable. SKIN: Intact. LABS: Sodium 137, potassium 3.8, chloride 102, bicarb 24, BUN 15, creatinine 0.92 and glucose 254, WBC 19,000, hgb 15.6, hct 43.6, plt count 300. ASSESSMENT: 1. Anterior abdominal surgery recent gastric bypass surgery 2. Diabetes 3. Hypertension 4. Dyslipidemia 5. Morbid obesity PLAN: 1. Continue the Vancomycin and Azactam 2. Accu-checks with coverage 3. Out of bed to chair 4. NO DVT prophylaxis as patient is active at this time. TIME SPENT: More than 35 minutes MTDD
--- NOTE | 2017-08-10 14:36 | PN ---
DATE OF SERVICE: 08/09/17 SUBJECTIVE: The patient was admitted with anterior abdominal wall abscess with recent history of the gastric sleeve surgery on the July 27 at [place]. The patient's WBC has drastically decreased from the 20,000 to the 13.22 today. No fever or chills. Talked to the lab. Currently the culture is growing MRSA. The patient was feeling more discomfort today in the abdomen so he requested if he can get transfer to the [facility] under the care of Dr. Espana. Talked to the Dr. Espana's web applications programmer services and Dr. Mandel was web applications programmer and she did suggest after listening to the case she did think that we are on track with the WBC getting better but she suggested to call the surgeon who is at [place] to see what should be done and if he is going to accept the patient. Same thing was conveyed to the patient. The patient is scheduled to get an ultrasound of anterior abdominal wall to assess the abscess. REVIEW OF SYSTEMS: CONSTITUTIONAL: No fever, no chills. HEENT: Normal. ENDOCRINE: No weight gain, no weight loss. CVS: No angina symptoms. No CHF symptoms. No palpitations. No atypical chest pain for CAD. No shortness of breath. No PND, no orthopnea. RESPIRATORY: No cough, no hemoptysis. GI: No nausea, no vomiting. No abdominal pain. : No hematuria. No polyuria. MUSCULOSKELETAL: No joint swelling. PSYCHIATRIC: Not anxious. No depression. No suicidal thoughts. No homicidal thoughts. SKIN: Intact. No rash. PHYSICAL EXAMINATION: GENERAL: Morbid obese man lying in the bed not in any distress. V/S: Blood pressure 141/89, respiratory rate 24, heart rate 102, temperature 97.5 and saturation 97%. HEENT: Normocephalic, atraumatic. Mucosa dry. NECK: Supple. No JVD, no carotid bruit. No lymphadenopathy. LUNGS: Decreased and clear to auscultation. No rales or rhonchi. HEART: S1, S2 normal. No S3. No murmur, gallop or regurgitation. ABDOMEN:Anterior abdominal wall the epigastric are the laparoscopic surgery site red. I was able to extract almost 5ml of the puss. Bowel sounds active. No rigidity. No rebound or guarding. No CVA tenderness. EXTREMITIES: No pedal edema. No clubbing or cyanosis MUSCULOSKELETAL: No joint swelling. NEUROLOGIC: Awake, alert, oriented times three. No focal deficit. LYMPHATIC: No lymph nodes palpable. SKIN: Intact. LABS: WBC 13.22, hgb 14.0, hct 40.1, plt count 286, Sodium 137, potassium 3.5, chloride 103, bicarb 26, BUN 14, creatinine 0.77 and glucose 128 ASSESSMENT: 1. Anterior abdominal wall abscess 2. Recent gastric sleeve on July 27 at [place] 3. Diabetes 4. Morbid obesity 5. Hypertension 6. Anxiety 7. GERD 8. Peripheral neuropathy 9. Hypertension 10.Dyslipidemia 11.Depression PLAN: 1. Will change the antibiotics to Azactam 2. Continue the Linezolid 3. Stop the Vancomycin 4. Accu-checks with coverage TIME SPENT: More than 35 minutes MTDD
[2017-08-10 15:27] VITALS: BP 164/90; TEMP 97.6
--- NOTE | 2017-09-28 13:50 | DS ---
DATE OF SERVICE: 08/10/17 FINAL DIAGNOSIS: 1. ANTERIOR ABDOMINAL WALL ABSCESS, RECENT HISTORY OF GASTRIC SLEEVE SURGERY ON 07/27/17 AT [facility] 2. DIABETES 3. MORBID OBESITY 4. HYPERTENSION 5. ANXIETY DISORDER 6. GERD 7. PERIPHERAL NEUROPATHY 8. HYPERTENSION 9. DYSLIPIDEMIA 10. DEPRESSION PLAN: 1. Discharge the patient home. 2. New medications: Bactrim twice a day for 7 days. Vancomycin 1.5 grams daily for 10 days. 3. Vancomycin trough levels will be monitored as an outpatient. 4. Continue the rest of the home medications of Lipitor, Symbicort, Neurontin, Lantus 100 units subq daily, Apidra 25 units prn, Lamictal, Fetzima, Losartan, Prilosec, Oxycodone, Sertraline, Janumet, Bactrim and AndroGel. 5. Diet: Diabetic diet. 6. Activity: As much as tolerated. DISEASE SPECIFIC EDUCATION: Wound infection, antibiotic use, diarrhea were discussed and he verbalized understanding. HOSPITAL COURSE: Abhi Trotter, who is a 47 year old male who recently had a gastric bypass surgery on July 27 in [place], had an open wound in the epigastric area which had started getting swelling, redness and started draining pus. The patient was an outpatient and was started on the Bactrim, but the swelling and the redness was getting worse and the patient was feeling that the swelling was moving to the right upper quadrant and the pain was getting worse, so he came to the emergency room. Ct of the abdomen and pelvis was done, which did not show any localized abscess, but there was stranding of the subcutaneous fat anterior abdominal wall. White count was 20,000. The patient was afebrile. He was started on Rocephin and Vancomycin. Wound grew staph aureus, which was MRSA. After two day of IV antibiotics, the patient's white count dropped to 13,000 and 12,000. He started feeling better. He was up and about walking and did not have any fever or chills. At that time, the patient was discharged to home. Outpatient antibiotics will be given IV Vancomycin and the Vancomycin trough levels will be monitored. TIME SPENT: MORE THAN 65 MINUTES MTDD
== END 2017-08-10 16:57 | disposition home or self-care (01) | DRG 603 ==
LOC: ED 21:54 → MEDSURG A 08-08 01:03
PROVIDERS: ADMIT Emergency Medicine; ATTEND Emergency Medicine
DX: L02.211 Cutaneous abscess of abdominal wall (principal); T81.89XA Other complications of procedures, not elsewhere classified, initial encounter; Z98.84 Bariatric surgery status; B95.62 Methicillin resistant Staphylococcus aureus infection as the cause of diseases classified elsewhere; E11.9 Type 2 diabetes mellitus without complications; E66.01 Morbid (severe) obesity due to excess calories; I10 Essential (primary) hypertension; F41.8 Other specified anxiety disorders; K21.9 Gastro-esophageal reflux disease without esophagitis; G62.9 Polyneuropathy, unspecified; E78.5 Hyperlipidemia, unspecified; Z79.84 Long term (current) use of oral hypoglycemic drugs
CPT/HCPCS: 36415; 80053; 80202; 82962; 83605; 84145; 85025; 87040; 87070; 87081; 87186; 96365; 96366; 96367; 99285

== ENCOUNTER 2017-08-10 21:07 | Outpatient (CLI) ==
[2017-08-10 21:38] VITALS: BP 136/90; TEMP 97.4
[2017-08-10] MEDS: VANCOMYCIN IV STA ×2 (22:05→22:07)
[2017-08-10] MEDS: SODIUM CHLORIDE IV STA ×2 (22:05→22:07)
[2017-08-10] MEDS ORDERED: VANCOMYCIN 1,500 MG in SODIUM CHLORIDE 500 ML IV STA (22:06)
== END 2017-08-10 21:08 | disposition home or self-care (01) ==
LOC: OUTPT 21:07
PROVIDERS: ATTEND Emergency Medicine
DX: L03.311 Cellulitis of abdominal wall (principal); B95.62 Methicillin resistant Staphylococcus aureus infection as the cause of diseases classified elsewhere

== ENCOUNTER 2017-08-11 08:54 | Outpatient (CLI) ==
[2017-08-11] MEDS ORDERED: VANCOMYCIN 1.5 GM in SODIUM CHLORIDE 500 ML IV ONE (09:30)
[2017-08-11] MEDS ORDERED: VANCOMYCIN 1,500 MG in SODIUM CHLORIDE 500 ML IV ONE (21:37)
[2017-08-11 21:41] VITALS: TEMP 98.1
[2017-08-11] MEDS ORDERED: VANCOMYCIN ONE (21:49)
[2017-08-12 00:33] VITALS: BP 159/84
== END 2017-08-11 08:55 | disposition home or self-care (01) ==
LOC: OPMED 08:54
PROVIDERS: ATTEND Emergency Medicine
DX: L03.311 Cellulitis of abdominal wall (principal); B95.62 Methicillin resistant Staphylococcus aureus infection as the cause of diseases classified elsewhere
CPT/HCPCS: 96360; 96366

== ENCOUNTER 2017-08-12 09:13 | Outpatient (CLI) ==
[2017-08-12 09:28] VITALS: BP 154/88; TEMP 97.5
[2017-08-12] MEDS ORDERED: VANCOMYCIN 1,500 MG in SODIUM CHLORIDE 500 ML IV STA (09:32)
[2017-08-12] MEDS ORDERED: VANCOMYCIN 1,500 MG in SODIUM CHLORIDE 500 ML IV ONE (22:25)
[2017-08-12] MEDS ORDERED: VANCOMYCIN ONE (22:28)
== END 2017-08-12 09:14 | disposition home or self-care (01) ==
LOC: OPMED 09:13
PROVIDERS: ATTEND Emergency Medicine
DX: L03.311 Cellulitis of abdominal wall (principal); B95.62 Methicillin resistant Staphylococcus aureus infection as the cause of diseases classified elsewhere
CPT/HCPCS: 96365; 96366

== ENCOUNTER 2017-08-13 08:42 | Outpatient (CLI) ==
[2017-08-13] MEDS ORDERED: VANCOMYCIN 1,500 MG in SODIUM CHLORIDE 500 ML IV STA (09:06)
[2017-08-13 09:19] VITALS: BP 141/86; TEMP 97.2
[2017-08-13] MEDS ORDERED: PROTONIX IV IVP STA (12:14)
[2017-08-13] MEDS ORDERED: VANCOMYCIN 1.5 GM in SODIUM CHLORIDE 500 ML IV STA (21:37)
== END 2017-08-13 12:38 | disposition home or self-care (01) ==
LOC: OPMED 08:42
PROVIDERS: ATTEND Emergency Medicine
DX: L03.311 Cellulitis of abdominal wall (principal); B95.62 Methicillin resistant Staphylococcus aureus infection as the cause of diseases classified elsewhere
CPT/HCPCS: 36415; 80202; 96365; 96366; 96375

== ENCOUNTER 2017-08-13 21:51 | Outpatient (CLI) ==
[2017-08-13] MEDS ORDERED: VANCOMYCIN 1.5 GM in SODIUM CHLORIDE 500 ML IV STA (22:00)
[2017-08-14 00:41] VITALS: BP 130/82; TEMP 97.9
== END 2017-08-13 21:52 | disposition home or self-care (01) ==
LOC: OPMED 21:51
PROVIDERS: ATTEND Emergency Medicine
DX: L03.311 Cellulitis of abdominal wall (principal); B95.62 Methicillin resistant Staphylococcus aureus infection as the cause of diseases classified elsewhere

== ENCOUNTER 2017-08-14 08:52 | Outpatient (CLI) ==
[2017-08-14] MEDS ORDERED: VANCOMYCIN 1.5 GM in SODIUM CHLORIDE 500 ML IV STA ×2 (09:35→20:59)
[2017-08-14 21:07] VITALS: BP 171/93; TEMP 97.9
== END 2017-08-14 08:53 | disposition home or self-care (01) ==
LOC: OPMED 08:52
PROVIDERS: ATTEND Emergency Medicine
DX: L03.311 Cellulitis of abdominal wall (principal); B95.62 Methicillin resistant Staphylococcus aureus infection as the cause of diseases classified elsewhere
CPT/HCPCS: 96365; 96366

== ENCOUNTER 2017-08-15 09:14 | Outpatient (CLI) | payer OTHER ==
[2017-08-15] MEDS ORDERED: VANCOMYCIN 1.5 GM in SODIUM CHLORIDE 500 ML IV STA (09:24)
[2017-08-15 09:36] VITALS: BP 163/79; TEMP 96.9
== END 2017-08-15 09:15 | disposition home or self-care (01) ==
LOC: OUTPT 09:14
PROVIDERS: ATTEND Nurse Practitioner Family
DX: L03.311 Cellulitis of abdominal wall (principal); B95.62 Methicillin resistant Staphylococcus aureus infection as the cause of diseases classified elsewhere
CPT/HCPCS: 36415; 80053; 85025; 96365; 96366; 96367

== ENCOUNTER 2017-08-15 21:17 | Outpatient (CLI) | payer OTHER ==
[2017-08-15 21:44] VITALS: BP 148/88; TEMP 98
[2017-08-15] MEDS ORDERED: VANCOMYCIN 1.5 GM in SODIUM CHLORIDE 500 ML IV ONE (21:45)
== END 2017-08-15 21:18 | disposition home or self-care (01) ==
LOC: SURG 21:17 → OUTPT 21:18
PROVIDERS: ATTEND Emergency Medicine
DX: L03.311 Cellulitis of abdominal wall (principal); B95.62 Methicillin resistant Staphylococcus aureus infection as the cause of diseases classified elsewhere
CPT/HCPCS: 96365; 96366

== ENCOUNTER 2017-08-16 09:10 | Outpatient (CLI) | payer OTHER ==
[2017-08-16] MEDS ORDERED: VANCOMYCIN 1.5 GM in SODIUM CHLORIDE 500 ML IV STA (09:25)
== END 2017-08-16 09:11 | disposition home or self-care (01) ==
LOC: OUTPT 09:10
PROVIDERS: ATTEND Emergency Medicine
DX: L03.311 Cellulitis of abdominal wall (principal); B95.62 Methicillin resistant Staphylococcus aureus infection as the cause of diseases classified elsewhere
CPT/HCPCS: 96366; 96367

== ENCOUNTER 2017-08-16 21:13 | Outpatient (CLI) | payer OTHER ==
[2017-08-16 21:27] VITALS: BP 150/88; TEMP 97.8
[2017-08-16] MEDS ORDERED: VANCOMYCIN 1.5 GM in SODIUM CHLORIDE 500 ML IV ONE (21:31)
== END 2017-08-16 21:14 | disposition home or self-care (01) ==
LOC: OPMED 21:13
PROVIDERS: ATTEND Emergency Medicine
DX: L03.311 Cellulitis of abdominal wall (principal); B95.62 Methicillin resistant Staphylococcus aureus infection as the cause of diseases classified elsewhere

== ENCOUNTER 2017-08-17 09:17 | Outpatient (CLI) | payer OTHER ==
[2017-08-17] MEDS ORDERED: VANCOMYCIN 1.5 GM in SODIUM CHLORIDE 500 ML IV STA ×2 (09:52→21:43)
[2017-08-17 22:01] VITALS: BP 135/83; TEMP 97.8
== END 2017-08-17 09:18 | disposition home or self-care (01) ==
LOC: OPMED 09:17
PROVIDERS: ATTEND Emergency Medicine
DX: L03.311 Cellulitis of abdominal wall (principal); B95.62 Methicillin resistant Staphylococcus aureus infection as the cause of diseases classified elsewhere
CPT/HCPCS: 36415; 80202; 96365; 96366

== ENCOUNTER 2017-08-19 09:36 | Outpatient (CLI) ==
[2017-08-19] MEDS ORDERED: VANCOMYCIN 1.5 GM in SODIUM CHLORIDE 500 ML IV STA (09:44)
[2017-08-19 09:56] VITALS: BP 135/87; TEMP 97.5
== END 2017-08-19 09:37 | disposition home or self-care (01) ==
LOC: OPMED 09:36
PROVIDERS: ATTEND Emergency Medicine
DX: L03.311 Cellulitis of abdominal wall (principal); B95.62 Methicillin resistant Staphylococcus aureus infection as the cause of diseases classified elsewhere
CPT/HCPCS: 96365; 96366

== ENCOUNTER 2017-08-20 09:39 | Outpatient (CLI) ==
[2017-08-20] MEDS ORDERED: VANCOMYCIN 1.5 GM in SODIUM CHLORIDE 500 ML IV STA (09:51)
[2017-08-20 09:54] VITALS: BP 157/99; TEMP 96.8
== END 2017-08-20 13:08 | disposition home or self-care (01) ==
LOC: OPMED 09:39
PROVIDERS: ATTEND Emergency Medicine
DX: L03.311 Cellulitis of abdominal wall (principal); B95.62 Methicillin resistant Staphylococcus aureus infection as the cause of diseases classified elsewhere
CPT/HCPCS: 96365; 96366

== ENCOUNTER 2017-08-20 21:24 | Outpatient (CLI) ==
[2017-08-20] MEDS ORDERED: SODIUM CHLORIDE IV STA ×2 (21:27→21:36)
[2017-08-20] MEDS ORDERED: VANCOMYCIN IV STA ×2 (21:27→21:36)
[2017-08-20 21:32] VITALS: BP 138/91; TEMP 97.6
[2017-08-20] MEDS ORDERED: VANCOMYCIN 1.5 GM in SODIUM CHLORIDE 500 ML IV ONE (21:36)
== END 2017-08-20 21:25 | disposition home or self-care (01) ==
LOC: OPMED 21:24
PROVIDERS: ATTEND Emergency Medicine
DX: L03.311 Cellulitis of abdominal wall (principal); B95.62 Methicillin resistant Staphylococcus aureus infection as the cause of diseases classified elsewhere
CPT/HCPCS: 96365; 96366

== ENCOUNTER 2017-12-11 14:16 | Outpatient (CLI) | END 2017-12-11 14:17 | disposition home or self-care (01) | LOC: LAB 14:16 | PROVIDERS: ATTEND Physician Assistant | DX: E78.5 Hyperlipidemia, unspecified (principal); E11.65 Type 2 diabetes mellitus with hyperglycemia | CPT/HCPCS: 36415; 80061; 82043 ==

== ENCOUNTER 2018-03-18 11:35 | Outpatient (CLI) | payer OTHER | END 2018-03-18 11:36 | disposition home or self-care (01) | LOC: LAB 11:35 | PROVIDERS: ATTEND Internal Medicine | DX: E11.65 Type 2 diabetes mellitus with hyperglycemia (principal) | CPT/HCPCS: 36415; 80053; 83036 ==